=== PATIENT | female | born 1980 | race Caucasian/White ===

== ENCOUNTER 2023-03-30 17:00 | Outpatient (RCR) | payer OTHER, BC, SELFPAY | END 2023-07-28 23:59 | disposition home or self-care (01) | PROVIDERS: PCP Family Medicine; Visit Provider Family Medicine | DX: S83.411D Sprain of medial collateral ligament of right knee, subsequent encounter (principal); M79.661 Pain in right lower leg; M79.89 Other specified soft tissue disorders; Z51.89 Encounter for other specified aftercare | CPT/HCPCS: 97110; 97112; 97161 ==